=== PATIENT | male | born 1985 | race Caucasian/White ===

== ENCOUNTER 2017-05-07 20:48 | Inpatient (IN) | payer MEDICAID ==
[~2017-05-07] VITALS: Ht 172.7 cm; Wt 81.6 kg
--- NOTE | 2017-05-07 21:15 | NUR ---
Pt biba for ALOC. Pt able to answer simple questions. Alert and oriented x 3. Slurred speech noted. Pt admits to etoh, pt smells of etoh. Pt NSR on monitor. Resp even and unlabored. No obvious signs of distress at this time. Pt resting in position of comfort for self. Awaiting further eval.
[2017-05-07 22:26] LABS: BASOPHILS # (AUTO) 0.3 K/uL (0.0-8.0); EOSINOPHILS % (AUTO) 0.3 % (0.0-7.0); HEMATOCRIT 45.2 % (40-50); HEMOGLOBIN 15.3 G/DL (14.0-18.0); LYMPHOCYTES % (AUTO) 7.4 % (20.5-51.5); MEAN CORPUSCULAR HEMOGLOBIN 31.6 UUG (27.0-31.0); MEAN CORPUSCULAR HGB CONC 34 g/dL (32.0-37.0); MEAN CORPUSCULAR VOLUME 93.6 FL (82.0-92.0); MONOCYTES # (AUTO) 0.9 K/UL (0.1-1.30); MONOCYTES % (AUTO) 6.6 % (0.0-11.0); NEUTROPHILS # (AUTO) 11.8 K/UL (1.8-8.9); NEUTROPHILS % (AUTO) 83.7 % (38.5-71.5); PLATELET COUNT (AUTO) 195 K/UL (150-450); RED BLOOD CELL COUNT(AUTO) 4.82 MIL/UL (4.7-6.1)
[2017-05-07 22:37] LABS: CARBON DIOXIDE 25 mmol/L (21-32); CHLORIDE 104 mmol/L (98-107); GLUCOSE 129 mg/dL (74-106); POTASSIUM 3.1 mmol/L (3.5-5.1); UREA NITROGEN, BLOOD 9 mg/dL (7-18)
[2017-05-07 22:38] LABS: ETHANOL 372 MG/DL (0-0)
[2017-05-07 22:45] LABS: BAND % (MANUAL) 8 % (0-10); LYMPHOCYTES % (MANUAL) 9 % (20-40); MONOCYTES % (MANUAL) 4 % (2-10); NEUTROPHILS % (MANUAL) 79 % (42-75)
[2017-05-07 22:50] LABS: ACETAMINOPHEN < 2.0 ug/mL (10-30); ALKALINE PHOSPHATASE 96 U/L (50-136); ASPARTATE AMINOTRANSFERASE 39 U/L (15-37); BILIRUBIN,DIRECT 0.1 mg/dL (0.0-0.2); BILIRUBIN,TOTAL 0.2 mg/dL (0.2-1.0); TOTAL PROTEIN, SERUM 7.6 g/dL (6.4-8.2)
--- NOTE | 2017-05-07 22:56 | NUR ---
Pt resting in position of comfort for self. Resp even and unlabored. No obvious signs of distress. Friend at bedside.
[2017-05-07 23:01] LABS: ALANINE AMINOTRANSFERASE 30 U/L (16-63)
--- NOTE | 2017-05-07 23:14 | NUR ---
Friend at bedside giving pt water, will monitor if tolerates.
--- NOTE | 2017-05-07 23:45 | NUR ---
Security at bedside to help keep pt in bed to maintain pt's safety
--- NOTE | 2017-05-08 00:57 | NUR ---
Pt sitting up in bed, eating sandwich and drinking water. Pt cooperative at this time. Security remains at bedside.
--- NOTE | 2017-05-08 01:50 | NUR ---
Pt requesting medication for anxiety and bodyaches. MD notified. Awaiting further orders. Pt quickly fell back asleep.
--- NOTE | 2017-05-08 03:35 | NUR ---
Pt resting with eyes closed, resp even and unlabored. No obvious signs of distress at this time.
--- NOTE | 2017-05-08 05:39 | NUR ---
Pt waking up, pt c/o headache and bodyaches. MD notified of pts complaints and of pts v/s. Awaiting further orders.
[2017-05-08] MEDS ORDERED: DEXTROSE 5% IV ONE (06:00)
[2017-05-08] MEDS ORDERED: DEXAMETHASONE SOD PHOSPHATE 4 MG INJ IV ONE (06:00)
[2017-05-08] MEDS ORDERED: ACYCLOVIR IV ONE (06:00)
[2017-05-08] MEDS ORDERED: CEFTRIAXONE 2 G in IV DEXTROSE 5% 100 ML IV ONE (06:00)
[2017-05-08] MEDS ORDERED: IV NORMAL SALINE 1000 ML BAG IV ONE (06:00)
[2017-05-08] MEDS ORDERED: MORPHINE SULFATE 4 MG/1 ML DISP.SYRIN IV ONE ×2 (06:15→07:00)
[2017-05-08] MEDS ORDERED: LORAZEPAM 2 MG/1 ML VIAL IV ONE ×2 (06:15→09:00)
[2017-05-08] MEDS ORDERED: ONDANSETRON IV *ER 4 MG/2 ML VIAL IV ONE (06:15)
[2017-05-08] MEDS ORDERED: CEFTRIAXONE 1 G VIAL ONE (06:18)
[2017-05-08] MEDS ORDERED: DEXAMETHASONE SOD PHOSPHATE 10 MG INJ ONE (06:19)
[2017-05-08] MEDS ORDERED: ONDANSETRON 4 MG/2 ML VIAL ONE (06:22)
[2017-05-08] MEDS ORDERED: MORPHINE SULFATE 4 MG/1 ML DISP.SYRIN ONE ×2 (06:22→07:13)
[2017-05-08] MEDS ORDERED: LORAZEPAM 2 MG/1 ML VIAL ONE ×2 (06:23→09:06)
--- NOTE | 2017-05-08 06:27 | NUR ---
IV established, fluid bolus started. Consent signed. LP completed, specimens sent to lab. ABT infusion started, will monitor for any adverse reactions. Pt resting in position of comfort for self, flat on back. Resp even and unlabored.
--- NOTE | 2017-05-08 06:59 | NUR ---
Report given to PAVITHRA Yeung. I relinquish care of pt at this time.
--- NOTE | 2017-05-08 07:00 | NUR ---
recieved pt in bed, awake and axo. pt says some how feels better but still has headache. md aware, orders recieved
[2017-05-08 07:33] LABS: *BILIRUBIN,URIN NEGATIVE (NEGATIVE); *BLOOD, URINE 2+ (NEGATIVE); *CLARITY,URINE CLEAR (CLEAR); *COLOR,URINE YELLOW (YELLOW); *KETONES,URINE NEGATIVE (NEGATIVE); *PROTEIN,URINE NEGATIVE (NEGATIVE); *UROBILINOGEN,URINE 0.2 E.U./dl (NORMAL); LEUKOCYTE ESTERASE ,URINE NEGATIVE (NEGATIVE); NITRITE, URINE NEGATIVE (NEGATIVE); PH,URINE 5.5 (5.0-8.0); UGLUCOSE NEGATIVE (NEGATIVE)
[2017-05-08 07:48] LABS: *AMPHETAMINE, URINE NEGATIVE (NEGATIVE); *BARBITURATE, URINE NEGATIVE (NEGATIVE); *CANNABINOID, URINE NEGATIVE (NEGATIVE); *OPIATE, URINE NEGATIVE (NEGATIVE); *PHENCYCLIDINE SCREEN,URINE NEGATIVE (NEGATIVE)
[2017-05-08 08:01] LABS: *COCCAINE, URINE NEGATIVE (NEGATIVE)
[2017-05-08 08:11] LABS: BACTERIA,URINE FEW /HPF (NONE SEEN); MUCUS,URINE MODERATE /LPF (0-FEW); SQUAMOUS EPITHELIAL CELL,UR FEW /HPF (NONE SEEN); WBC,URINE 0-3 /HPF (0-3)
--- NOTE | 2017-05-08 08:24 | NUR ---
[facility] served per pt request . md felipe.
--- NOTE | 2017-05-08 08:55 | NUR ---
pt says that the anxiety is coming back requesting for md laron notified
--- NOTE | 2017-05-08 09:45 | NUR ---
[facility] at bedside for admission.
[2017-05-08] MEDS ORDERED: ONDANSETRON 4 MG/2 ML VIAL IV PRN (10:00)
[2017-05-08] MEDS ORDERED: MAGNESIUM HYDROXIDE 30 ML LIQUID UDC PO PRN (10:00)
[2017-05-08] MEDS ORDERED: Z GUARD REMEDY PASTE 57 GM TUBE TOP PRN (10:00)
[2017-05-08] MEDS ORDERED: ACETAMINOPHEN 325 MG TABLET PO PRN (10:00)
[2017-05-08] MEDS ORDERED: PHARMACY TO ADD 1 AMP OF MVI DAILY TO IVF ONE BAG XX PRN (10:15)
[2017-05-08] MEDS ORDERED: LORAZEPAM 2 MG/1 ML VIAL IV PRN (10:15)
--- NOTE | 2017-05-08 10:18 | NUR ---
pt transfered to floor in stable condition
[2017-05-08 10:19] LABS: BASOPHILS # (AUTO) 0.5 K/uL (0.0-8.0); BASOPHILS % (AUTO) 3.4 % (0.0-2.0); EOSINOPHILS % (AUTO) 0.1 % (0.0-7.0); HEMOGLOBIN 14.4 G/DL (14.0-18.0); LYMPHOCYTES # (AUTO) 0.3 K/UL (0.8-4.8); LYMPHOCYTES % (AUTO) 1.9 % (20.5-51.5); MEAN CORPUSCULAR HEMOGLOBIN 31.2 UUG (27.0-31.0); MEAN CORPUSCULAR HGB CONC 33 g/dL (32.0-37.0); MEAN CORPUSCULAR VOLUME 93.3 FL (82.0-92.0); MONOCYTES # (AUTO) 0.1 K/UL (0.1-1.30); MONOCYTES % (AUTO) 0.9 % (0.0-11.0); NEUTROPHILS # (AUTO) 12.5 K/UL (1.8-8.9); NEUTROPHILS % (AUTO) 93.7 % (38.5-71.5); PLATELET COUNT (AUTO) 213 K/UL (150-450); RED BLOOD CELL COUNT(AUTO) 4.61 MIL/UL (4.7-6.1); WHITE BLOOD COUNT (AUTO) 13.4 K/UL (4.0-11.2)
--- NOTE | 2017-05-08 10:30 | NUR ---
NEW ADMISSION TO ROOM 218. PATIENT ALERT AWAKE IN NO ACUTE DISTRESS. MICKI HARDY [employer] AWARE OF NEW ADMISSION.
[2017-05-08] MEDS ORDERED: MVI ADULT 10 ML VIAL=1 AMP 10 ML in IV NS 1000 ML 1,000 ML IV PRN (10:45)
[2017-05-08 10:50] LABS: BAND % (MANUAL) 8 % (0-10); CREATININE 0.9 mg/dL (0.6-1.3); LYMPHOCYTES % (MANUAL) 1 % (20-40); MAGNESIUM 1.3 mg/dL (1.8-2.4); MONOCYTES % (MANUAL) 2 % (2-10); NEUTROPHILS % (MANUAL) 89 % (42-75); PHOSPHOROUS 1.5 mg/dL (2.5-4.9); POTASSIUM 3.9 mmol/L (3.5-5.1)
[2017-05-08] MEDS ORDERED: FOLIC ACID 1 MG in IV DEXTROSE 5% 50 ML IV SCH (11:00)
[2017-05-08 11:09] LABS: BILIRUBIN,TOTAL 0.1 mg/dL (0.2-1.0); TOTAL PROTEIN, SERUM 7.3 g/dL (6.4-8.2)
[2017-05-08 11:40] VITALS: BP 105/56
[2017-05-08] MEDS: MORPHINE SULFATE 2 MG/1 ML DISP.SYRIN IV PRN (11:48)
[2017-05-08] MEDS: IV NS 1000 ML 1,000 ML IV PRN (12:00)
[2017-05-08] MEDS ORDERED: THIAMINE HCL INJ 100 MG in IV DEXTROSE 5% 50 ML IV SCH (12:00)
[2017-05-08] MEDS: PIPERACILLIN/TAZOBACTAM/D5W 50 ML IV SCH ×2 (12:01→17:53)
--- NOTE | 2017-05-08 13:30 | NUR ---
PATIENT SEEN BY DR. LUCIANO.
[2017-05-08] MEDS ORDERED: POTASSIUM PHOSPHATE MM 7.5 MMOL in IV DEXTROSE 5% 100 ML IV ONE (13:45)
[2017-05-08] MEDS: VANCOMYCIN IV 1,500 MG in IV DEXTROSE 5% 500 ML IV SCH ×2 (13:48→22:52)
[2017-05-08] MEDS: PANTOPRAZOLE SODIUM 40 MG VIAL IV SCH (14:07)
[2017-05-08 16:14] VITALS: BP 118/76
--- NOTE | 2017-05-08 16:14 | NUR ---
VSS. PATIENT ALERT AWAKE IN NO ACUTE DISTRESS. INDEPENDENT WITH ADLs.
[2017-05-08] MEDS: MAGNESIUM SULFATE/D5W 100 ML IV SCH ×3 (16:39→21:35)
--- NOTE | 2017-05-08 17:04 | NUR ---
Clinical pharmacy note-Vancomycin dosing per pharmacy Subjective: To start Vancomycin dosing on this 31 year old patient for fever, R/O infection (acute toxic encephalopathy) Objective: BUN 7 Scr 0.9 WBC 13.4 Temp 100.8 Ht 5'9" Wt 180lbs Assessment: Will start Vancomycin 1500mg IV every 10hrs(first dose given today at 1200) and draw trough by 4th dose(not ordered yet) for expected trough around 16. Will monitor renal function closely to adjust the dose if needed. Will follow daily.
--- NOTE | 2017-05-08 18:30 | NUR ---
END OF SHIFT NOTE: PATIENT IN NO ACUTE DISTRESS THROUGHOUT SHIFT. PAIN MANAGED WITH MEDICATION PRESCRIBED. VSS. CONTINUES WITH IVF. INDEPENDENT WITH ADLs. NEEDS MET BY STAFF. CONTINUES IN CONTACT ISOLATION.
[2017-05-08 19:00] VITALS: BP 115/75
[2017-05-08 20:00] VITALS: BP 115/75
--- NOTE | 2017-05-08 20:00 | NUR ---
RN NOTES: PATIENT RECEIVED IN STABLE CONDITION, NO COMPLAINS OF PAIN OR DISTRESS NOTED. WILL CONTINUE TO MONITOR.
[2017-05-09] MEDS: PIPERACILLIN/TAZOBACTAM/D5W 50 ML IV SCH ×3 (00:57→11:13)
[2017-05-09 04:00] VITALS: BP 112/61
[2017-05-09 07:25] LABS: BASOPHILS % (AUTO) 0.3 % (0.0-2.0); EOSINOPHILS % (AUTO) 0.2 % (0.0-7.0); HEMATOCRIT 43.1 % (40-50); HEMOGLOBIN 14.9 G/DL (14.0-18.0); LYMPHOCYTES # (AUTO) 0.6 K/UL (0.8-4.8); LYMPHOCYTES % (AUTO) 3.8 % (20.5-51.5); MEAN CORPUSCULAR HEMOGLOBIN 32.8 UUG (27.0-31.0); MEAN CORPUSCULAR HGB CONC 35 g/dL (32.0-37.0); MEAN CORPUSCULAR VOLUME 94.5 FL (82.0-92.0); MONOCYTES # (AUTO) 1.1 K/UL (0.1-1.30); MONOCYTES % (AUTO) 6.9 % (0.0-11.0); NEUTROPHILS # (AUTO) 14.8 K/UL (1.8-8.9); NEUTROPHILS % (AUTO) 88.8 % (38.5-71.5); PLATELET COUNT (AUTO) 222 K/UL (150-450); RED BLOOD CELL COUNT(AUTO) 4.56 MIL/UL (4.7-6.1); WHITE BLOOD COUNT (AUTO) 16.5 K/UL (4.0-11.2)
[2017-05-09] MEDS: VANCOMYCIN IV 1,500 MG in IV DEXTROSE 5% 500 ML IV SCH (07:49)
[2017-05-09] MEDS: PANTOPRAZOLE SODIUM 40 MG VIAL IV SCH (08:01)
[2017-05-09 08:02] LABS: BILIRUBIN,TOTAL 0.3 mg/dL (0.2-1.0); CREATININE 0.9 mg/dL (0.6-1.3); MAGNESIUM 2.3 mg/dL (1.8-2.4); PHOSPHOROUS 1.9 mg/dL (2.5-4.9); POTASSIUM 3.8 mmol/L (3.5-5.1); TOTAL PROTEIN, SERUM 7.1 g/dL (6.4-8.2)
[2017-05-09] MEDS: OSELTAMIVIR PHOSPHATE 75 MG CAPSULE PO SCH ×2 (08:13→21:04)
[2017-05-09] MEDS: MORPHINE SULFATE 2 MG/1 ML DISP.SYRIN IV PRN (08:41)
[2017-05-09 09:31] LABS: BAND % (MANUAL) 13 % (0-10); LYMPHOCYTES % (MANUAL) 7 % (20-40); MONOCYTES % (MANUAL) 10 % (2-10); NEUTROPHILS % (MANUAL) 70 % (42-75)
[2017-05-09] MEDS ORDERED: NEUTRA PHOS PACKET PO ONE (09:45)
[2017-05-09] MEDS: FOLIC ACID 1 MG TABLET PO SCH (11:04)
[2017-05-09] MEDS: THIAMINE HCL 100 MG TABLET PO SCH (11:04)
[2017-05-09] MEDS: MULTIVITAMINS,THERAPEUTIC TABLET PO SCH (11:04)
[2017-05-09 11:19] VITALS: BP 118/52
[2017-05-09 15:23] VITALS: BP 127/74
[2017-05-09 20:00] VITALS: BP 129/81
[2017-05-09] MEDS: LACTOBACILLUS RHAMNOSUS GG 1 EACH CAPSULE PO SCH (21:04)
[2017-05-09] MEDS: IV NS 1000 ML 1,000 ML IV PRN (21:13)
--- NOTE | 2017-05-09 22:00 | NUR ---
Bilateral arm IV line infiltrated, re-started new peripheral line on his right hand w/ Ag22. IVF maintained. Assisted w/ all needs.
[2017-05-10] MEDS ORDERED: HYDROMORPHONE 1 MG/1 ML DISP.SYRIN ONE (04:26)
[2017-05-10] MEDS ORDERED: ONDANSETRON 4 MG/2 ML VIAL ONE (04:26)
[2017-05-10 05:15] VITALS: BP 120/77
--- NOTE | 2017-05-10 06:37 | NUR ---
Fairly rested, no acute resp distress. Afebrile.
[2017-05-10] MEDS ORDERED: PANTOPRAZOLE SODIUM 40 MG TABLET.DR PO SCH (07:00)
[2017-05-10 07:17] LABS: BASOPHILS % (AUTO) 0.2 % (0.0-2.0); EOSINOPHILS % (AUTO) 0.5 % (0.0-7.0); HEMOGLOBIN 13.8 G/DL (14.0-18.0); LYMPHOCYTES # (AUTO) 1.9 K/UL (0.8-4.8); LYMPHOCYTES % (AUTO) 23.2 % (20.5-51.5); MEAN CORPUSCULAR HEMOGLOBIN 31.9 UUG (27.0-31.0); MEAN CORPUSCULAR HGB CONC 34 g/dL (32.0-37.0); MEAN CORPUSCULAR VOLUME 94.8 FL (82.0-92.0); MONOCYTES # (AUTO) 0.6 K/UL (0.1-1.30); MONOCYTES % (AUTO) 6.9 % (0.0-11.0); NEUTROPHILS # (AUTO) 5.8 K/UL (1.8-8.9); NEUTROPHILS % (AUTO) 69.2 % (38.5-71.5); PLATELET COUNT (AUTO) 224 K/UL (150-450); RED BLOOD CELL COUNT(AUTO) 4.33 MIL/UL (4.7-6.1)
--- NOTE | 2017-05-10 07:30 | NUR ---
pt received in bed sleeping ,no c/o pain noted.v/s are stable.
[2017-05-10 07:34] LABS: BILIRUBIN,TOTAL 0.3 mg/dL (0.2-1.0); CREATININE 0.9 mg/dL (0.6-1.3); MAGNESIUM 2.1 mg/dL (1.8-2.4); PHOSPHOROUS 3.5 mg/dL (2.5-4.9); POTASSIUM 3.7 mmol/L (3.5-5.1); TOTAL PROTEIN, SERUM 6.4 g/dL (6.4-8.2)
[2017-05-10 07:39] LABS: WHITE BLOOD COUNT (AUTO) 8.3 K/UL (4.0-11.2)
[2017-05-10] MEDS: FOLIC ACID 1 MG TABLET PO SCH (08:06)
[2017-05-10] MEDS: THIAMINE HCL 100 MG TABLET PO SCH (08:06)
[2017-05-10] MEDS: MULTIVITAMINS,THERAPEUTIC TABLET PO SCH (08:06)
[2017-05-10] MEDS: LACTOBACILLUS RHAMNOSUS GG 1 EACH CAPSULE PO SCH (08:06)
[2017-05-10] MEDS: OSELTAMIVIR PHOSPHATE 75 MG CAPSULE PO SCH (08:06)
[2017-05-10] MEDS: IV NS 1000 ML 1,000 ML IV PRN (09:30)
[2017-05-10] MEDS ORDERED: ACET325T53 PO (10:15)
[2017-05-10] MEDS ORDERED: LACT1CAP57 PO (10:15)
[2017-05-10] MEDS ORDERED: OSEL75CA PO (10:15)
--- NOTE | 2017-05-10 14:15 | NUR ---
d/c orders received noted and carried out.d/c instructions and educations given to the pt.d/c heplock per md orders.pt left the facility via private car in stable condition.
== END 2017-05-10 14:17 | disposition home or self-care (01) | DRG 720 ==
LOC: ER 20:54 → MED 05-08 10:10
PROVIDERS: ADMIT Internal Medicine; ATTEND Internal Medicine
PROC: 009U3ZX Drainage of Spinal Canal, Percutaneous Approach, Diagnostic (ICD-10-PCS; principal; 2017-05-08)
DX: A41.9 Sepsis, unspecified organism (principal); G92 Toxic encephalopathy; E87.2 Acidosis; E44.0 Moderate protein-calorie malnutrition; E88.09 Other disorders of plasma-protein metabolism, not elsewhere classified; I36.1 Nonrheumatic tricuspid (valve) insufficiency; E83.42 Hypomagnesemia; F32.9 Major depressive disorder, single episode, unspecified; F41.9 Anxiety disorder, unspecified; B34.9 Viral infection, unspecified; E87.6 Hypokalemia; F10.129 Alcohol abuse with intoxication, unspecified; E83.39 Other disorders of phosphorus metabolism; F17.210 Nicotine dependence, cigarettes, uncomplicated; R74.0 Nonspecific elevation of levels of transaminase and lactic acid dehydrogenase [LDH]; R73.9 Hyperglycemia, unspecified; A41.89 Other specified sepsis; E83.51 Hypocalcemia; J10.1 Influenza due to other identified influenza virus with other respiratory manifestations; Z68.27 Body mass index [BMI] 27.0-27.9, adult; D53.9 Nutritional anemia, unspecified; Y90.8 Blood alcohol level of 240 mg/100 ml or more; D72.825 Bandemia
CPT/HCPCS: 36415; 70030-TC; 70450; 71010; 80307; 83605; 83735; 84100; 84157; 84443; 85025; 85730; 87040; 87086; 87205; 87400; 87806; 89051; 93005; 93307; 97161; C9113; G0480; G0480-TC; J0133; J0696; J1100; J1170; J2060; J2270; J2405; J2543; J3370; J3411; J3475; J3490; J7030; J7040; J7050; J7060